=== PATIENT | male | born 1975 | race Caucasian/White ===

== ENCOUNTER 2017-09-29 16:43 | Emergency (ER) | payer OTHER ==
[~2017-09-29] VITALS: Ht 177.8 cm; Wt 99.8 kg
[2017-09-29] MEDS ORDERED: TYLENOL325 MG PO (16:59)
[2017-09-29 18:24] VITALS: BP 133/89
== END 2017-09-29 18:24 | disposition home or self-care (01) ==
LOC: M.ERS 16:43
DX: S91.331A Puncture wound without foreign body, right foot, initial encounter (principal); F17.200 Nicotine dependence, unspecified, uncomplicated; Z88.6 Allergy status to analgesic agent; W22.8XXA Striking against or struck by other objects, initial encounter; Y93.89 Activity, other specified; Y92.89 Other specified places as the place of occurrence of the external cause; Y99.8 Other external cause status

== ENCOUNTER 2021-08-22 15:02 | Emergency (ER) | payer OTHER ==
[~2021-08-22] VITALS: Ht 177.8 cm; Wt 97.5 kg
[~2021-08-22 15:02] MED LIST: TYLENOL325 MG PO
[2021-08-22 15:10] VITALS: BP 153/103
== END 2021-08-22 21:04 | disposition left against medical advice (07) ==
LOC: M.ERS 15:02
DX: R07.89 Other chest pain (principal); Z53.21 Procedure and treatment not carried out due to patient leaving prior to being seen by health care provider

== ENCOUNTER → 2021-09-24 | Outpatient (CLI) | payer OTHER ==
[~2021-09-24] MED LIST changes: +ASA81BEC PO; +IBUPROFEN 800800 M1 PO; +LISINOPRIL5 MG PO; +OMEGA-3 FISH1200 MG PO; +SUPER THERAVIT1 EACH PO
--- NOTE | 2021-09-24 16:58 | CARDNUC ---
[place] [address] CARDIAC NUCLEAR IMAGING REPORT Name: RHONA BELL Room: [facility]#: [id number] Admission: 09/24/21 Attend Phys: Sonal Cruz Discharge: Date of : 77 Date of Service: 09/24/21 1658 Report #: [id number] THIS REPORT FOR: cc: Stew Munguia Adam J DO Liston, Michael J. MD [facility] ~ APPROVED REPORT Imaging Protocol: Rest Tc-99m/Stress Tc-99m 1 day Study performed: 09/24/2021 09:49:38 Indication: Chest pain Patient Location: Out-Patient Stress Tech: rhona waldron Stress Nurse: Clotilde Russ RN NM Tech:STEVEN Burleson Ht: 5 ft 10 in Wt: 206 lbs BSA: 2.11 m2 BMI: 29.55 Medical History Medical History: HTN, Hyperlipidemia Medications: asa-81, lisinopril Allergies: No known drug allergies Cardiac Risk Factors: FHX of CAD, HTN, Hyperlipidemia, Smoking Exercise History: Physically active Resting Data Rest SPECT myocardial perfusion imaging was performed in supine position 30 minutes following the intravenous injection of 11.7 mCi of Tc-99m Sestamibi. Time of rest injection: 849 Date: 09/24/2021 The images were gated to evaluate regional wall motion and calculate left ventricular ejection fraction. Administration Route: IV Administration Site: Right Hand Pharmacologic Stress Pharmacologic stress test was performed by injecting Regadenoson 0.4 mg IV push over 10-15 seconds immediately followed by the intravenous injection of 32.5 mCi of Tc-99m Sestamibi. Time of stress injection: 1010 Date: 09/24/2021 Administration Route: [place] [address] CARDIAC NUCLEAR IMAGING REPORT Name: RHONA BELL Room: [facility]#: [id number] Admission: 09/24/21 Attend Phys: Sonal Cruz Discharge: Date of : 77 Date of Service: 09/24/21 1658 Report #: [id number] Administration Site: Right Hand Gated Stress SPECT was performed 40 minutes after stress injection. The images were gated to evaluate regional wall motion and calculate left ventricular ejection fraction. Prone imaging was performed. Stress Test Details Stress Test: Exercise stress converted to pharmacologic stress due to failure to obtain a diagnostic stress test. Reason for pharmacologic stress test: changed from exercise stress test due to inability to reach target heart rate. HR Max Heart Rate (APMHR): 176 bpm Resting HR: 74 bpm Target HR (85% APMHR): 149 bpm Max HR Achieved: 124 bpm % of APMHR: 70 Recovery HR: 90 bpm BP Resting BP: 116/69 mmHg Max BP: 143/63 mmHg Recovery BP: 145/79 mmHg ECG Resting ECG: Sinus rhythm Stress ECG: Sinus tachycardia ST Change: ST Elevation Maximum ST Deviation: 1 mm Arrhythmia: None Recovery ECG: Sinus rhythm Recovery ST Change: ST Elevation Recovery ST Deviation: 1 mm Recovery Arrhythmia: None Clinical Reason for Termination: Completed protocol The patient tolerated Lexiscan infusion without significant cardiac symptoms. Treadmill exercise was stopped due to leg cramping and thumb numbness. Nurse Comments pt attempted to walk on treadmill but co of legs cramping and tongu getting numb which he states leads to arm pain and chest pain. treadmill stopped and patient changed to sitting [place] [address] CARDIAC NUCLEAR IMAGING REPORT Name: BELLRHONA Room: [facility]#: [id number] Admission: 09/24/21 Attend Phys: Sonal Cruz Discharge: Date of : 77 Date of Service: 09/24/21 1658 Report #: [id number] The baseline twelve-lead EKG shows sinus rhythm without significant ST segment abnormality. EKGs obtained during and post Lexiscan infusion show sinus rhythm with [address] segment elevation in the inferior leads. No stress-induced arrhythmias were observed. Study Quality Study: Good Artifact: No artifact Study Data At rest, the left ventricular ejection fraction was 62%.. Post stress, the left ventricular ejection was 65%.. TID = 0.93. Perfusion Perfusion images show a moderate sized severe intensity reversible defect involving the basal to distal inferior wall consistent with stress-induced ischemia. No other significant fixed or reversible defects are identified. Wall Motion There is a region of hypokinesis above the basal to mid inferior wall. Global LV systolic function is preserved. Nuclear Conclusion ECG Findings: positive for ischemia Clinical Findings: positive for ischemia Nuclear Findings: positive for ischemia Exercise Capacity: not assessed Left Ventricular Function: Preserved Risk Study: high Perfusion images suggest stress-induced ischemia of the inferior wall. The patient had EKG changes and symptoms to suggest ischemia/angina. This is a high risk study. <Conclusion> The baseline twelve-lead EKG shows sinus rhythm without significant ST segment abnormality. EKGs obtained during and post Lexiscan infusion show sinus rhythm with [address] segment elevation in the inferior leads. No stress-induced arrhythmias were observed. <ELECTRONICALLY SIGNED> By: Geoff Hills MD, FACC 09/24/21 1658 57 57 Geoff Hills MD, FACC /INF
== END ==
LOC: M.NUC 08:00
PROVIDERS: ATTEND Internal Medicine
DX: I25.9 Chronic ischemic heart disease, unspecified (principal); E78.00 Pure hypercholesterolemia, unspecified; I10 Essential (primary) hypertension; R94.31 Abnormal electrocardiogram [ECG] [EKG]; I25.10 Atherosclerotic heart disease of native coronary artery without angina pectoris; Z72.0 Tobacco use; Z79.899 Other long term (current) drug therapy

== ENCOUNTER 2021-09-26 12:11 | Observation (INO) | payer OTHER ==
[2021-09-26] VITALS (14 sets, daily range): BP systolic 126–152; BP diastolic 74–89
[~2021-09-26] VITALS: Ht 177.8 cm; Wt 93.0 kg
--- NOTE | ~2021-09-26 | H ---
[address] [address] HISTORY AND PHYSICAL Name: ALLIE BELL Room: [address] Krishna Salgado#: [id number] Admission: 09/26/21 Attend Phys: Erlin Juarez MD, Discharge: 09/27/21 Date of : 77 Report #: [id number] THIS REPORT FOR: cc: Stew Munguia Adam J DO [facility],Medical Records Staff ~ Please refer to the History and Physical performed in the physician's office. By: 1443Medical Records Staff KAREN /BIBI
[~2021-09-26 12:11] MED LIST changes: -SUPER THERAVIT1 EACH PO
[2021-09-26 13:00] LABS: HEMATOCRIT 41.4 % (42.0-52.0); HEMOGLOBIN 13.7 gm/dL (14.0-18.0); MCH 29.1 pg (26.0-34.0); MCHC 33.2 g/dL (28.0-37.0); MCV 87.6 fL (80.0-100.0); MPV 8.9 fl. (7.2-11.1); RBC 4.72 mil/uL (4.50-6.00); RDW-CV 13.5 % (10.5-14.5); WBC 7.8 thou/uL (4.0-11.0)
[2021-09-26] MEDS ORDERED: SUPER THERAVIT1 EACH PO (13:06)
[2021-09-26 13:14] LABS: ANION GAP 8 mmol/L (7-16); BUN 10 mg/dL (7-18); CALCIUM 8.4 mg/dL (8.5-10.1); CHLORIDE 103 mmol/L (98-107); CO2 28 mmol/L (21-32); CREATININE 0.8 mg/dL (0.6-1.3); GLUCOSE 96 mg/dL (70-99); SODIUM 139 mmol/L (136-145)
[2021-09-26 13:16] LABS: APTT 24.8 Seconds (25.0-31.3); INR 1.1; PROTIME 10.8 Seconds (9.20-11.50)
[2021-09-26 13:18] LABS: ALBUMIN 3.7 g/dL (3.4-5.0); ALKALINE PHOSPHATASE 67 U/L (46-116); CHOLESTEROL 155 mg/dL (<200); HDL CHOLESTEROL 30 mg/dL (>40); LDL CHOLESTEROL 109 mg/dL (<100); SERUM ASSESSMENT CLEAR; SGOT 13 U/L (15-37); SGPT 33 U/L (30-65); TC:HDL 5.2 Ratio (Not establshd); TOTAL BILIRUBIN 0.4 mg/dL (<0.1-1.0); TOTAL PROTEIN 7.8 g/dL (6.4-8.2); TRIGLYCERIDE 83 mg/dL (<150); VLDL 17 mg/dL (<40)
[2021-09-27 01:16] VITALS: BP 146/85
[2021-09-27 04:35] VITALS: BP 135/87
[2021-09-27] MEDS ORDERED: EFFIENT10 MG PO (07:54)
[2021-09-27] MEDS ORDERED: NITROGLYCERIN0.4 MG SUBLING (07:55)
[2021-09-27] MEDS ORDERED: ATORVASTATIN CA20 MG PO (07:55)
[2021-09-27 08:00] VITALS: BP 148/84
[2021-09-27 10:01] VITALS: BP 148/84
--- NOTE | 2021-09-27 11:09 | CARD ---
[address] [address] CARDIAC CATH REPORT Name: ALLIE BELL Room: [address] Krishna Salgado#: [id number] Admission: 09/26/21 Attend Phys: Erlin Juarez MD, Discharge: 09/27/21 Date of : 77 Report #: [id number] THIS REPORT FOR: cc: Stew Munguia Adam J DO Holkins,Erlin Cho MD [facility] ~ APPROVED REPORT Study performed: 09/26/2021 13:25:07 Patient Details Patient Status: Out-Patient Room #: The patient is a 45 year-old male Event Personnel Dr. Juarez, Dr Hills, David Fierro RN, Stew Joyner RTR, Jeanine Dillard RTR, Angie Betancourt head waiter/waitress Performed Left Heart Cath with LV gram, IVUS Mid RCA, JOHN placement to Mid and distal RCA Indication Unstable angina , Positive stress test Risk Factors Hypercholesterolemia Admission/Lab Medications/Medications given during procedure Angiomax bolus and infusion Procedure Narrative The patient was brought electively to the Cardiac Catheterization Laboratory and was prepped and draped in a sterile manner. The right femoral was infiltrated with 2% Lidocaine subcutaneous anesthesia. IV conscious sedation was used throughout procedure with appropriate monitoring and was performed in the presence of a registered nurse who was an independent trained observer other than the physician performing the procedure. A 6Fr Ultimum sheath was inserted into the right femoral artery. Coronary angiography was performed using coronary diagnostic catheters. The right coronary system was accessed and visualized with a Diagnostic 6Fr JR 4 catheter. The left coronary system was accessed and visualized with a Diagnostic 6Fr JL 4 catheter. The left ventricle was accessed and visualized with a [facility] [address] [place] [address] CARDIAC CATH REPORT Name: ALLIE BELL Jasson Room: [address] Krishna Salgado#: [id number] Admission: 09/26/21 Attend Phys: Erlin Juarez MD, Discharge: 09/27/21 Date of : 77 Report #: [id number] Diagnostic 6Fr Str pigtail catheter. Left ventricular/Aortic Valve gradient assessed via catheter pullback. Left ventriculogram was performed in VEGA projection. Pre-demployment femoral angiogram was performed in VEGA. Closure device was deployed with a 6 Fr Angioseal. The patient tolerated the procedure well and there were no complications associated with the procedure. There was no hematoma. Intraoperative Conscious Sedation Sedation start time: 1338 Case end Time: 1425 Fentanyl 150.0 mcg Versed 2.0 mg Fluoro Time: 9.1 minutes Dose: DAP 74502 cGycm2 1003.97 mGy Contrast Type and Amount: Visipaque 270 mL Coronary Angiography The patient's coronary anatomy is right dominant. Diagnostic Cath Left Main 0% narrowing LAD 40% tubular mid LAD narrowing with 50% ostial second diagonal narrowing Circumflex Nondominant vessel with 30% mid vessel narrowing Right Coronary Large dominant vessel with 90% mid vessel stenosis and a 75% narrowing beyond the acute margin; there were [id number] collaterals filling the distal right artery in retrograde fashion Left Ventriculography The left ventricle is normal in size with normal contractility. The left ventricular ejection fraction is estimated to be 65%. Left ventricular wall motion abnormalities are not present. There is no mitral insufficiency. IVUS Anticoagulation was achieved with Angiomax. Intravascular Ultrasound was performed on the Right coronary artery vessel. IVUS Findings IVUS evaluation revealed a well-expanded mid right coronary stent without edge dissection with a luminal diameter of 3.3 [place] [address] CARDIAC CATH REPORT Name: RAYALLIE Spaulding [address]#: [id number] Admission: 09/26/21 Attend Phys: Erlin Juarez MD, Discharge: 09/27/21 Date of : 77 Report #: [id number] Hemodynamics The aortic pressure is 114/62 mmHg with a mean of 85 mmHg. The left ventricular pressure is 110/5 mmHg with a mean of 20 mmHg. The left ventricular end diastolic pressure is 14 mmHg. There was no gradient across the aortic valve upon pullback. PCI Technique Lesion Anticoagulation was achieved with Angiomax. Bolus and drip Percutaneous coronary intervention was performed on the mid right coronary artery. The lesion stenosis prior to intervention was 95% with DARLENE 3 flow. A 6Fr AR 1 Guide Catheter was used to engage the RCA ostium. A IG: BMW 190cm Interventional Guidewire was used to cross the lesion. BALLOON DILATION A Balloon catheter Trek RX 2.5 X 12 was inserted and inflated up to 16atm for 10seconds. Additional Inflation: 18atm for 15seconds. Additional Inflation: 19atm for 10seconds. STENT DEPLOYMENT A drug-eluting stent [place] RX Stent 3.0X18mm was inserted and inflated up to 12atm for 7seconds. Additional Inflation: 16atm for 7seconds. Additional Inflation: 18atm for 9seconds. POST STENT DEPLOYMENT BALLOON DILATION A Balloon catheter [place] TREK RX 3.5X12 was inserted and inflated up to 15atm for 9seconds. Additional Inflation: 15atm for 6seconds. Additional Inflation: 16atm for 5seconds. Final angiography reveals 0 % stenosis with DARLENE 3 flow. PCI Technique Lesion Percutaneous coronary intervention was performed on the Right coronary artery. BALLOON DILATION A Balloon catheter IVUS evaluation revealed a well-expanded mid right coronary stent without edge dissection with a luminal diameter of 3.3 mm. was inserted and inflated up to lisbet for seconds. PCI Technique Lesion 2 Percutaneous Coronary Intervention was performed on the distal right coronary artery. The lesion stenosis prior to intervention was 75% with DARLENE 3 flow. A 6Fr AR 1 Guide Catheter was used to engage the RCA ostium. A IG: BMW 190cm Interventional [place] [address] CARDIAC CATH REPORT Name: ALLIE BELL Room: Olegario231-P INGRID Salgado#: [id number] Admission: 09/26/21 Attend Phys: Erlin Juarez MD, Discharge: 09/27/21 Date of : 77 Report #: [id number] cross the lesion. Stent Deployment A drug-eluting stent Sebastien RX Stent 3.0X12mm was inserted and inflated up to 12atm for 7seconds. Additional Inflation: 15atm for 5seconds. Final angiography reveals 0 % stenosis with DARLENE 3 flow. Conclusion 1. Significant coronary artery disease characterized by the following: A 95% mid right coronary stenosis with 75% narrowing beyond the acute margin B 40% tubular mid LAD narrowing with 50% ostial second diagonal narrowing C nondominant circumflex with 30% mid vessel narrowing 2. Normal left-sided hemodynamic study 3. Normal left ventricular systolic function, estimated ejection fraction being 65% 4. Successful PCI with deployment of sequential drug-eluting stents at the sites of 95% mid and 75% distal right coronary with 0% residual narrowing at both sites and DARLENE-3 flow to the distal vessel 5. IVUS revealed a well-expanded mid right coronary stent without edge dissection with a luminal diameter of 3.3 mm. Recommendations Cardiac Risk Reduction Program Aggressive Medical Therapy Medications Administered Aspirin (any) [place] [address] CARDIAC CATH REPORT Name: ALLIE BELL Room: [address] INGRID Salgado#: [id number] Admission: 09/26/21 Attend Phys: Erlin Juarez MD, Discharge: 09/27/21 Date of : 77 Report #: [id number] Diagnostic Cath Approved by: Geoff Hills MD Date/Time: 09/27/2021 11:03:17 <ELECTRONICALLY SIGNED> By: Erlin Juarez MD, FACC 09/27/21 1109 08 Jocarolyn Juarez MD, FACC /INF
--- NOTE | 2021-09-27 11:18 | EKG ---
[place] [address] ELECTROCARDIOGRAM REPORT Name: ALLIE BELL Room: [address] M.R.#: [id number] Admission: 09/26/21 Attend Phys: Sonal Cruz Discharge: 09/27/21 Date of : 77 Date of Service: 09/26/21 1311 Report #: [id number] THIS REPORT FOR: //name// [facility] Test Date: 2021-09-26 Test Time: 13:11:31 Pat Name: ALLIE BELL Department: Room: [facility] Gender: M Clin Asst: TM : 1975 Requested By: Geoff Hills Order Number: [id number] [id number] MD: Erlin Juarez Measurements Intervals [place] Rate: 58 P: 53 [place]: 225 QRS: 65 QRSD: 102 T: -9 QT: 412 QTc: 405 Interpretive Statements Sinus rhythm Prolonged [place] interval Inferior infarct, age indeterminate Minimal ST elevation, anterior leads Baseline wander in lead(s) V6 No previous ECG available for comparison Electronically Signed On 09-27-2021 11:18:46 DULSER by Erlin Juarez [email or web address] <ELECTRONICALLY SIGNED> By: Erlin Juarez MD, [facility] 09/27/21 1118 1311 1311 Erlin Juarez MD, [facility] /EPI
--- NOTE | 2021-09-27 11:24 | EKG ---
[place] [address] ELECTROCARDIOGRAM REPORT Name: ALLIE BELL Room: [address]#: [id number] Admission: 09/26/21 Attend Phys: Sonal Cruz Discharge: 09/27/21 Date of : 77 Date of Service: 09/26/21 1454 Report #: [id number] THIS REPORT FOR: //name// [facility] Test Date: 2021-09-26 Test Time: 14:54:46 Pat Name: ALLIE BELL Department: Room: [facility] Gender: M Pulmonologist: : 1975 Requested By: Geoff Hills Order Number: [id number] [id number] MD: Erlin Juarez Measurements Intervals [place] Rate: 64 P: 67 [place]: 214 QRS: 74 QRSD: 107 T: -12 QT: 415 QTc: 428 Interpretive Statements Sinus rhythm Prolonged [place] interval Inferior infarct, age indeterminate No previous ECG available for comparison Electronically Signed On 09-27-2021 11:24:06 PROBATION WORKER by Erlin Juarez [email or web address] <ELECTRONICALLY SIGNED> By: Erlin Juarez MD, [facility] 09/27/21 1124 1454 1454 Erlin Juarez MD, [facility] /EPI
--- NOTE | 2021-09-28 10:51 | D ---
[address] [address] DISCHARGE SUMMARY Name: ALLIE BELL Room: [address] Krishna Salgado#: [id number] Admission: 09/26/21 Attend Phys: Erlin Juarez MD, Discharge: 09/27/21 Date of : 77 Report #: [id number] THIS REPORT FOR: cc: Stew Munguia Adam J DO Holkins,Erlin Cho MD [facility] ~ DATE OF DISCHARGE: 09/27/2021 FINAL DISCHARGE DIAGNOSES: 1. Unstable angina. 2. Abnormal nuclear stress test. 3. Coronary artery disease. 4. Hypertension. 5. Hyperlipidemia. 6. Tobacco abuse. 7. Status post PCI to the right coronary artery. PROCEDURES: On 09/26/2021 -- left heart catheterization, left ventriculography, selective coronary arteriography, and percutaneous coronary intervention with deployment of 2 drug-eluting stents in the mid and distal right coronary artery. HOSPITAL COURSE: The patient is a pleasant 45-year-old male who presented to the office with episodes of chest discomfort. One was quite severe with burning pain and radiation to both arms. He sought assistance in the emergency room and was discharged to home. He continued to experience some discomfort, but not as severe as that initial episode. EKG revealed nonspecific inferior ST-T changes with small inferior Q-waves. Stress test was performed, which revealed inducible inferior ischemia. The patient has underlying hypertension, hyperlipidemia and tobacco abuse. Given the confluence of data, I recommended proceeding with cardiac catheterization, which was undertaken on 09/26/2021. That study revealed significant coronary artery disease, characterized by 90% mid right coronary stenosis with 75-80% distal right coronary narrowing. There was mild disease of the left main, LAD and circumflex. I performed a PCI, deploying one drug-eluting stent in the mid right coronary artery and one in the distal right coronary artery with a 0% residual narrowing at both sites and DARLENE 3 flow to the distal vessel. There was good hemostasis at the right femoral site of catheterization. The patient ambulated in the hallways without difficulty. During the hospitalization, renal function parameters were normal as well as a CBC. Lipids were abnormal with an LDL cholesterol 109 mg percent with a total cholesterol of 155 and triglycerides of 83. HDL was 30 [place] [address] DISCHARGE SUMMARY Name: BELLALLIE Room: [address] Krishna Salgado#: [id number] Admission: 09/26/21 Attend Phys: Erlin Juarez MD, Discharge: 09/27/21 Date of : 77 Report #: [id number] The patient did well post-procedurally and ambulated in the hallways without difficulty. DISCHARGE MEDICATIONS: He was discharged to home on the following medications: Prasugrel or Effient 10 mg daily with a 60 mg periprocedural dose having been given, atorvastatin 20 mg at bedtime, p.r.n. sublingual nitroglycerin, enteric-coated aspirin 81 mg daily, omega 3 fatty acids or fish oil 1000 mg daily, lisinopril 5 mg daily, ibuprofen 800 mg p.r.n., musculoskeletal discomfort and a multivitamin tablet daily. He is scheduled to return to see my nurse practitioner in 2 weeks and myself in 6 weeks. We emphasized the importance of compliance with medications and specifically dual antiplatelet therapy. Therefore, the patient is discharged home in stable condition on the aforementioned medications with followup as iterated above. <ELECTRONICALLY SIGNED> By: Erlin Juarez MD, FACC 09/28/21 1051 0835 [id number] Juarez MD, FACC /nt
--- NOTE | 2021-09-30 13:43 | EKG ---
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 Hand: SUNDAY : 1975 Requested By: Geoff Hills Order Number: [id number] Reading MD: Grady Gleason Measurements Intervals [place] Rate: 70 P: 57 MD: 207 QRS: 66 QRSD: 99 T: -18 QT: 384 QTc: 415 Interpretive Statements Sinus rhythm Borderline prolonged MD interval Inferior infarct, age indeterminate Compared to ECG 09/26/2021 14:54:46 No significant changes Electronically Signed On 09-30-2021 13:43:39 DOSIER OPERATOR by Grady Gleason [email or web address] <ELECTRONICALLY SIGNED> By: Grady Gleason MD, FACC 09/30/21 1343 1002 1002 Grady Gleason MD, [facility] /EPI
== END 2021-09-27 10:15 | disposition home or self-care (01) ==
LOC: M.CL 12:11 → M.TBA-ER 14:23 → M.2W 14:23 → M.CL 15:30 → M.2W 16:56
PROVIDERS: Internal Medicine Cardiovascular Disease; ADMIT Internal Medicine; ATTEND Internal Medicine
DX: I25.110 Atherosclerotic heart disease of native coronary artery with unstable angina pectoris (principal); I10 Essential (primary) hypertension; Z20.822 Contact with and (suspected) exposure to COVID-19; E78.5 Hyperlipidemia, unspecified; F17.200 Nicotine dependence, unspecified, uncomplicated; Z79.01 Long term (current) use of anticoagulants; Z79.899 Other long term (current) drug therapy; Z88.6 Allergy status to analgesic agent